=== PATIENT | female | born 1980 ===

== ENCOUNTER 2021-03-13 13:31 | Outpatient (CLI) | payer OTHER | END 2021-03-13 14:21 | disposition home or self-care (01) | LOC: TRG 13:31 → APU 13:32 → TRG 14:21 | DX: O26.893 Other specified pregnancy related conditions, third trimester (principal); O09.523 Supervision of elderly multigravida, third trimester; Z67.41 Type O blood, Rh negative; Z3A.30 30 weeks gestation of pregnancy | CPT/HCPCS: 86850; 86900; 86901; 96372; J2790 ==

== ENCOUNTER 2021-03-23 12:01 | Outpatient (CLI) | payer OTHER ==
[2021-03-23] MEDS ORDERED: TERBUTALINE 1 MG/1 ML INJ SUB-Q PRN (12:48)
[2021-03-23] MEDS ORDERED: MINERAL OIL 30 ML ORAL LIQD PO PRN (12:48)
[2021-03-23] MEDS ORDERED: ePHEDrine SULFATE 50 MG/1 ML INJ IV PRN (12:48)
[2021-03-23] MEDS ORDERED: CARBOPROST TROMETHAMINE 250 MCG/1 ML INJ IM PRN (12:48)
[2021-03-23] MEDS ORDERED: fentaNYL 100 MCG/2 ML INJ IV PRN (12:48)
[2021-03-23] MEDS ORDERED: miSOPROStol 200 MCG TAB PR PRN (12:48)
[2021-03-23] MEDS ORDERED: METHYLERGONOVINE MALEATE 0.2 MG/ML VIAL IM PRN (12:48)
[2021-03-23] MEDS ORDERED: BUTORPHANOL 2 MG/1 ML INJ IV PRN (12:48)
[2021-03-23] MEDS ORDERED: OXYTOCIN 10 UNIT/1 ML INJ IM PRN (12:48)
[2021-03-23] MEDS ORDERED: LIDOCAINE (2%) 20 MG/1 ML VIAL 20 ML MDV INFILTRATI ONE (12:48)
[2021-03-23] MEDS ORDERED: LOPERAMIDE 2 MG CAP PO PRN (12:48)
[2021-03-23] MEDS ORDERED: ACETAMINOPHEN 325 MG TAB PO PRN (12:48)
[2021-03-23] MEDS ORDERED: ONDANSETRON 4 MG/2 ML INJ IV PRN (12:48)
[2021-03-23] MEDS ORDERED: OXYTOCIN DRIP 30 UNITS/500 ML BAG IV SCH ×2 (13:00)
[2021-03-23] MEDS ORDERED: LACTATED RINGERS 1,000 ML IV SCH ×2 (13:00→16:00)
[2021-03-23] MEDS ORDERED: LACTATED RINGERS 500 ML IV ONE (13:10)
[2021-03-23] MEDS ORDERED: ONDANSETRON 4 MG/2 ML INJ IM ONE (13:13)
[2021-03-23] MEDS ORDERED: LACTATED RINGERS 1,000 ML IV ONE (13:17)
[2021-03-23] MEDS ORDERED: FAMOTIDINE 20 MG/2 ML INJ IV ONE (13:20)
[2021-03-23 14:02] LABS: Blood Urea Nitrogen 7 mg/dL (7-17); Calcium 8.1 mg/dL (8.4-10.2); Hemolysis Index 14
[2021-03-23 14:03] LABS: BUN/Creatinine Ratio 23
[2021-03-23] MEDS ORDERED: ACETAMINOPHEN 500 MG TAB PO ONE ×2 (14:15→19:00)
[2021-03-23 15:08] LABS: Bacteria,Urine 1+ /HPF (Negative); Mucus,Urine 3+ /HPF
[2021-03-23 17:38] LABS: Bilirubin,Urine NEG (Negative); Blood,Urine NEG (Negative); Color,Urine Amber (Yellow); Urobilinogen,Urine < 2.0 mg/dL (<2.0)
--- NOTE | 2021-03-23 18:19 | Ultrasound Report ---
ULTRASOUND ABDOMEN, LIMITED INDICATION / CLINICAL INFORMATION: gallbladder. Abdominal pain. COMPARISON: None available. FINDINGS: PANCREAS: Visualized portion shows no significant abnormality. LIVER: No significant abnormality. Normal hepatopedal blood flow in the main portal vein. GALLBLADDER: Multiple echogenic gallstones. No gallbladder wall thickening or edema. BILE DUCTS: No significant abnormality. Common bile duct measures 4.5 mm. FREE FLUID: None. ADDITIONAL FINDINGS: None. IMPRESSION: 1. Cholelithiasis. Signer Name: Shaun Cervantes MD Signed: 03/23/2021 6:15 PM Workstation Name: [id number]
[2021-03-23 19:49] VITALS: BP 119/66
== END 2021-03-23 20:13 | disposition home or self-care (01) ==
LOC: TRG 12:01 → APU 12:02 → LD 14:47 → TRG 20:13
PROVIDERS: ATTEND Obstetrics & Gynecology
DX: O09.893 Supervision of other high risk pregnancies, third trimester (principal); Z3A.32 32 weeks gestation of pregnancy
CPT/HCPCS: 36415; 59025; 76705; 80048; 81001; 87086; J2405; J3490; J7120

== ENCOUNTER 2021-05-15 12:54 | Outpatient (CLI) | payer OTHER ==
[2021-05-15 15:47] LABS: Basophils % (Auto) 0.3 % (0.0-1.8); Eosinophils # (Auto) 0.1 K/mm3 (0.0-0.4); Eosinophils % (Auto) 0.7 % (0.0-4.3); Hematocrit 31.5 % (30.3-42.9); Hemoglobin 10.9 gm/dl (10.1-14.3); Lymphocytes # (Auto) 1.2 K/mm3 (1.2-5.4); Lymphocytes % (Auto) 14.3 % (13.4-35.0); Mean Corpuscular HGB Conc 35 % (30-34); Mean Corpuscular Volume 87 fl (79-97); Monocytes # (Auto) 0.4 K/mm3 (0.0-0.8); Monocytes % (Auto) 5.1 % (0.0-7.3); Platelet Count 243 K/mm3 (140-440); Red Blood Count 3.63 M/mm3 (3.65-5.03); Red Cell Distribution Width 14.8 % (13.2-15.2)
[2021-05-15 15:50] LABS: Alanine Aminotransferase 13 units/L (7-56); Albumin 3.2 g/dL (3.9-5); Blood Urea Nitrogen 9 mg/dL (7-17); Calcium 8.6 mg/dL (8.4-10.2); Hemolysis Index 5; Uric Acid 3.8 mg/dL (3.5-7.6)
[2021-05-15 16:03] LABS: BUN/Creatinine Ratio 30
[2021-05-15 16:12] VITALS: BP 128/71
== END 2021-05-15 16:30 | disposition home or self-care (01) ==
LOC: TRG 12:54 → APU 12:55 → TRG 16:30
PROVIDERS: ATTEND Obstetrics & Gynecology
DX: O09.893 Supervision of other high risk pregnancies, third trimester (principal); Z3A.39 39 weeks gestation of pregnancy
CPT/HCPCS: 36415; 80053; 84550; 85025

== ENCOUNTER 2021-05-17 07:59 | Inpatient (IN) | payer OTHER ==
[2021-05-17] MEDS ORDERED: LACTATED RINGERS 1,000 ML ONE (09:49)
[2021-05-17] MEDS ORDERED: OXYTOCIN DRIP 30,000 MILLIUNITS/500 ML BAG IV ONE (09:50)
[2021-05-17 09:53] LABS: Hematocrit 34.1 % (30.3-42.9); Hemoglobin 11.8 gm/dl (10.1-14.3); Mean Corpuscular HGB Conc 35 % (30-34); Mean Corpuscular Volume 86 fl (79-97); Platelet Count 237 K/mm3 (140-440); Red Blood Count 3.97 M/mm3 (3.65-5.03); Red Cell Distribution Width 15.1 % (13.2-15.2)
[2021-05-17] MEDS ORDERED: TERBUTALINE 1 MG/1 ML INJ SUB-Q PRN (10:00)
[2021-05-17] MEDS ORDERED: ePHEDrine SULFATE 50 MG/1 ML INJ IV PRN (10:00)
[2021-05-17] MEDS ORDERED: ACETAMINOPHEN 325 MG TAB PO PRN ×2 (10:00→23:57)
[2021-05-17] MEDS ORDERED: OXYTOCIN 10 UNIT/1 ML INJ IM PRN (10:00)
[2021-05-17] MEDS ORDERED: CARBOPROST TROMETHAMINE 250 MCG/1 ML INJ IM PRN (10:00)
[2021-05-17] MEDS ORDERED: NALOXONE 0.4 MG/1 ML INJ IV PRN (10:00)
[2021-05-17] MEDS ORDERED: OXYTOCIN DRIP 30 UNITS/500 ML BAG IV SCH ×2 (10:00)
[2021-05-17] MEDS ORDERED: ONDANSETRON 4 MG/2 ML INJ IV PRN (10:00)
[2021-05-17] MEDS ORDERED: miSOPROStol 200 MCG TAB PR PRN (10:00)
[2021-05-17] MEDS ORDERED: BUTORPHANOL 2 MG/1 ML INJ IV PRN (10:00)
[2021-05-17] MEDS ORDERED: LIDOCAINE (2%) 20 MG/1 ML VIAL 20 ML MDV INFILTRATI SCH (10:00)
[2021-05-17] MEDS ORDERED: fentaNYL 100 MCG/2 ML INJ IV PRN ×2 (10:00→23:57)
[2021-05-17] MEDS ORDERED: LOPERAMIDE 2 MG CAP PO PRN (10:00)
[2021-05-17] MEDS ORDERED: MINERAL OIL 30 ML ORAL LIQD PO PRN (10:00)
[2021-05-17 10:14] LABS: Alanine Aminotransferase 13 units/L (7-56); Uric Acid 3.9 mg/dL (3.5-7.6)
[2021-05-17] MEDS: LACTATED RINGERS 1,000 ML IV SCH ×3 (10:31→20:17)
[2021-05-17] MEDS: BUTORPHANOL 2 MG/1 ML INJ IV PRN ×2 (10:37→18:22)
--- NOTE | 2021-05-17 10:41 | History and Physical Report ---
History of Present Illness Date of examination: 05/17/21 Date of admission: 05/17/2021 Chief complaint: My water broke at 0645 this morning History of present illness: Late entry to care at 15 3/7 Weeks at [facility], course complicated by a abnormal early 1 hour GTT followed by a normal 3 hour GTT; RH Negative: received Rhogam; AMA, and Maternal obesity. Past History Past Medical History: no pertinent history Past Surgical History: [employer]/uterine surgery (2018: right partial Oophrectomy and salpingectomy due to ectopic ) Family/Genetic History: none Social history: no significant social history - Obstetrical History Expected Date of Delivery: 05/19/21 Actual Gestation: 39 Week(s) 5 Day(s) : 2 Spontaneous Abortions: 1 Medications and Allergies Allergies Allergy/AdvReac Type Severity Reaction Status Date / Time No Known Allergies Allergy Verified 05/15/21 13:24 Active Meds: Active Medications Acetaminophen (Acetaminophen 325 Mg Tab) 650 mg PO Q4H PRN PRN Reason: Pain, Mild (1-3) Butorphanol Tartrate (Butorphanol 2 Mg/1 Ml Inj) 1 mg IV Q2H PRN PRN Reason: Pain, Moderate(4-6) LABOR PAIN Butorphanol Tartrate (Butorphanol 2 Mg/1 Ml Inj) 2 mg IV Q2H PRN PRN Reason: Pain , Severe (7-10) Last Admin: 05/17/21 10:37 Dose: 2 mg Carboprost Tromethamine (Carboprost Tromethamine 250 Mcg/1 Ml Inj) 250 mcg IM ONCE PRN PRN Reason: Uterine Bleeding Ephedrine Sulfate (Ephedrine Sulfate 50 Mg/1 Ml Inj) 10 mg IV Q2M PRN PRN Reason: Hypotension Fentanyl (Fentanyl 100 Mcg/2 Ml Inj) 100 mcg IV Q2H PRN PRN Reason: Pain,Severe (7-10) LABOR PAIN Oxytocin/Sodium Chloride (Pitocin/Ns 30 Unit/500ml) 30 units in 500 mls @ 4 mls/hr IV TITR SANDEEP; Protocol Last Admin: 05/17/21 10:35 Dose: 4 ml/hr, 4 mls/hr Lactated Ringer's (Lactated Ringers) 1,000 mls @ 125 mls/hr IV DIRECT SANDEEP Last Admin: 05/17/21 10:31 Dose: 125 mls/hr Oxytocin/Sodium Chloride (Pitocin/Ns 30 Unit/500ml) 30 units in 500 mls @ 40 mls/hr IV TITR SANDEEP; Protocol Lidocaine (Lidocaine (2%) 20 Mg/1 Ml Vial 20 Ml Mdv) 20 ml INFILTRATI ONCE@1000 SANDEEP Stop: 05/18/21 09:59 Loperamide HCl (Loperamide 2 Mg Cap) 2 mg PO ONCE PRN PRN Reason: give with Hemabate Mineral Oil (Mineral Oil 30 Ml Oral Liqd) 30 ml PO QHS PRN PRN Reason: Constipation Misoprostol (Misoprostol 200 Mcg Tab) 800 mcg DE ONCE PRN PRN Reason: Uterine Bleeding Naloxone HCl (Naloxone 0.4 Mg/1 Ml Inj) 0.1 mg IV Q2MIN PRN PRN Reason: Res Rate </= 8 or 02 SAT < 92% Ondansetron HCl (Ondansetron 4 Mg/2 Ml Inj) 4 mg IV Q8H PRN PRN Reason: Nausea And Vomiting Oxytocin (Oxytocin 10 Unit/1 Ml Inj) 10 unit IM ONCE PRN PRN Reason: Uterine Bleeding Terbutaline Sulfate (Terbutaline 1 Mg/1 Ml Inj) 0.25 mg SUB-Q ONCE PRN PRN Reason: Hyperstimulation/Hypertonicity Review of Systems All systems: negative - Vital Signs Vital signs: Vital Signs Pulse BP 76 116/78 05/17/21 08:30 05/17/21 08:30 Temp Pulse Resp BP Pulse Ox 98.3 F 67 16 112/70 99 05/17/21 08:48 05/17/21 10:34 05/17/21 08:48 05/17/21 10:10 05/17/21 10:34 - Physical Exam Breasts: Positive: normal Cardiovascular: Regular rate Lungs: Positive: Clear to auscultation, Normal air movement Abdomen: Positive: normal appearance, soft, normal bowel sounds Genitourinary (Female): Positive: normal external genitalia, normal perenium Uterus: Positive: enlarged Anus/Rectum: Positive: normal perianal skin Extremities: Positive: normal - Obstetrical FHR: category 1 Uterine Contraction Monitor Mode: External Cervical Dilatation: 1 (Leaking a large amount of clear fluid) Cervical Effacement Percentage: 60 station: -3 Uterine Contraction Pattern: Irregular Uterine Tone Measurement Phase: Resting Uterine Contraction Intensity: Mild Results Result Diagrams: 05/17/21 09:00 05/17/21 09:00 Abnormal lab results 05/17/21 05/17/21 Range/Units 09:00 09:00 MCHC 35 H (30-34) % Creatinine 0.3 L (0.6-1.2) mg/dL Lactate Dehydrogenase 306 H (91-180) units/L All other labs normal. Assessment and Plan A: IUP @ 39 5/7 Weeks Category I Tracing PROM AMA Maternal Obesity GBS Negative P: Admit to L&D Per Routine Orders Cook's Cervical Ripening Balloon Placed Low-Dose Pitocin Induction
--- NOTE | 2021-05-17 12:10 | Anesthesia Consultation ---
Anesthesia Consult and Med Hx Date of service: 05/17/21 - Airway Anesthetic Teeth Evaluation: Good ROM Head & Neck: Adequate Mental/Hyoid Distance: Adequate Mallampati Class: Class II Intubation Access Assessment: Probably Good - Pulmonary Exam CTA: Yes - Cardiac Exam Cardiac Exam: RRR - Pre-Operative Health Status ASA Pre-Surgery Classification: ASA3 Proposed Anesthetic Plan: Epidural - Pulmonary Hx Asthma: No COPD: No Hx Pneumonia: No - Cardiovascular System Hx Hypertension: No - Central Nervous System Hx Seizures: No Hx Psychiatric Problems: No - Endocrine Hx Renal Disease: No Hx End Stage Renal Disease: No Hx Hypothyroidism: No Hx Hyperthyroidism: No - Hematic Hx Anemia: Yes Hx Sickle Cell Disease: No - Other Systems Hx Alcohol Use: No Hx Obesity: Yes
--- NOTE | 2021-05-17 12:42 | Progress Note ---
Assessment and Plan A: IUP @ 39 5/7 Weeks Category I Tracing PROM AMA Maternal Obesity GBS Negative P: Cook's Balloon fell out AROM of hindbag Continue Pitocin Augmentation Subjective - Subjective Date of service: 05/17/21 Interval history: Late entry to care at 15 3/7 Weeks at [facility], course complicated by a abnormal early 1 hour GTT followed by a normal 3 hour GTT; RH Negative: received Rhogam; AMA, and Maternal obesity. Patient reports: movement normal, contractions Objective - Vital Signs Vital Signs: Vital Signs - 12hr 05/17/21 05/17/21 05/17/21 08:30 08:32 08:37 Temperature Pulse Rate 76 81 89 Respiratory Rate Blood Pressure 116/78 O2 Sat by Pulse 97 97 Oximetry 05/17/21 05/17/21 05/17/21 08:42 08:47 08:48 Temperature 98.3 F Pulse Rate 78 73 Respiratory 16 Rate Blood Pressure O2 Sat by Pulse 99 98 Oximetry 05/17/21 05/17/21 05/17/21 08:52 08:56 09:02 Temperature Pulse Rate 78 73 79 Respiratory Rate Blood Pressure O2 Sat by Pulse 98 98 99 Oximetry 05/17/21 05/17/21 05/17/21 09:06 09:12 09:16 Temperature Pulse Rate 68 74 75 Respiratory Rate Blood Pressure O2 Sat by Pulse 98 98 98 Oximetry 05/17/21 05/17/21 05/17/21 09:22 09:26 09:31 Temperature Pulse Rate 72 64 66 Respiratory Rate Blood Pressure O2 Sat by Pulse 98 99 99 Oximetry 05/17/21 05/17/21 05/17/21 09:37 09:39 09:41 Temperature Pulse Rate 65 63 77 Respiratory Rate Blood Pressure 114/73 O2 Sat by Pulse 97 99 Oximetry 05/17/21 05/17/21 05/17/21 09:45 09:46 09:51 Temperature Pulse Rate 69 68 63 Respiratory Rate Blood Pressure O2 Sat by Pulse 87 98 99 Oximetry 05/17/21 05/17/21 05/17/21 09:56 10:01 10:06 Temperature Pulse Rate 61 61 64 Respiratory Rate Blood Pressure O2 Sat by Pulse 98 99 100 Oximetry 05/17/21 05/17/21 05/17/21 10:10 10:17 10:34 Temperature Pulse Rate 75 77 67 Respiratory Rate Blood Pressure 112/70 O2 Sat by Pulse 98 99 Oximetry 05/17/21 05/17/21 05/17/21 10:39 10:40 10:44 Temperature Pulse Rate 69 65 67 Respiratory Rate Blood Pressure 120/69 O2 Sat by Pulse 98 96 Oximetry 05/17/21 05/17/21 05/17/21 10:46 10:49 11:10 Temperature Pulse Rate 68 67 63 Respiratory Rate Blood Pressure 132/75 O2 Sat by Pulse 94 97 Oximetry 05/17/21 05/17/21 11:40 12:09 Temperature Pulse Rate 68 69 Respiratory Rate Blood Pressure 139/89 124/77 O2 Sat by Pulse Oximetry - Exam Breasts: normal Cardiovascular: Regular rate Lungs: Normal air movement Abdomen: Present: normal appearance, soft Uterus: Present: normal, firm, fundal height above umbilicus FHR: category 1 Uterine Contraction Monitor Mode: External Cervical Dilatation: 4 (AROM of hindbag: Copious amount of clear fluid) Cervical Effacement Percentage: 70 station: -3 Uterine Contraction Pattern: Regular Uterine Tone Measurement Phase: Resting Uterine Contraction Intensity: Moderate Extremities: normal - Labs Labs: Abnormal Labs 05/17/21 05/17/21 09:00 09:00 MCHC 35 H Creatinine 0.3 L Lactate Dehydrogenase 306 H Laboratory Results - last 24 hr 05/17/21 05/17/21 05/17/21 09:00 09:00 09:00 WBC 6.5 RBC 3.97 Hgb 11.8 Hct 34.1 MCV 86 MCH 30 MCHC 35 H RDW 15.1 Plt Count 237 Creatinine 0.3 L Estimated GFR > 60 Uric Acid 3.9 AST 19 ALT 13 Lactate Dehydrogenase 306 H SARS-CoV-2 (PCR) Blood Type O NEGATIVE Antibody Screen Negative 05/17/21 10:45 WBC RBC Hgb Hct MCV MCH MCHC RDW Plt Count Creatinine Estimated GFR Uric Acid AST ALT Lactate Dehydrogenase SARS-CoV-2 (PCR) Negative Blood Type Antibody Screen
[2021-05-17] MEDS ORDERED: NALOXONE 2 MG/2 ML INJ IV PRN (13:00)
[2021-05-17 16:16] LABS: Mucus,Urine 3+ /HPF
[2021-05-17 16:29] LABS: RBC,Urine > 182.0 /HPF (0.0-6.0)
[2021-05-17 17:54] LABS: Color,Urine Yellow (Yellow)
[2021-05-17 17:55] LABS: Bilirubin,Urine Negative (Negative); Protein,Urine <15 mg/dL mg/dL (Negative)
[2021-05-17 17:59] LABS: Blood,Urine 3+ (Negative)
--- NOTE | 2021-05-17 20:59 | Progress Note ---
Labor Epidural - Labor Epidural Start Time: 20:31 Stop Time: 20:50 Performed by:: XAVIER RUTHERFORD Procedure: Patient is requesting epidural for labor pain. H&P, and labs reviewed. Procedure explained, questions answered, consent obtained. Patient in sitting position with blood pressure cuff and pulse ox on and working. Timeout performed immediately before start of procedure. Sterile Chloraprep prep/drape. 3 mL 1% lidocaine skin wheal at L[3]-L[4]. 17-gauge tuohy epidural needle advanced to [id number] with saline at 10 cm x3 attempts, difficulty with positioning patient and holding still. Epidural dexmedetomidine [30] mcg administered. Epidural catheter advanced to 15 cm, negative aspiration for blood and csf, negative test dose 3 ml 1.5% lidocaine with epinephrine. Sterile sponge and tegaderm applied, followed by tape reinforcement. Patient tolerated procedure well.
[2021-05-17] MEDS: ePHEDrine SULFATE 50 MG/1 ML INJ IV PRN (21:11)
[2021-05-17] MEDS: fentaNYL-BUPIV 2 MCG/ML-0.125% 200 MCG/100 ML BAG EPIDURAL SCH (21:21)
[2021-05-17] MEDS ORDERED: NalbUPHINE 10 MG/1 ML INJ IV PRN (23:57)
[2021-05-18] MEDS: ePHEDrine SULFATE 50 MG/1 ML INJ IV PRN (01:41)
[2021-05-18] MEDS: fentaNYL-BUPIV 2 MCG/ML-0.125% 200 MCG/100 ML BAG EPIDURAL SCH (05:29)
--- NOTE | 2021-05-18 08:02 | Event Note ---
Date: 05/18/21 CC: IOL for Term PROM HPI: 40 y/o at 39-6/7 weeks in L&D for IOL secondary to Term PROM. She progressed from 1 cm to 6 cm after Cook's catheter and Pitocin. Of note, the patient reports (L) calf pain. O: EFM= category 1 TOCO= q 5-7 min SVE= 6 cm. IUPC and FSE placed. EXT= (L) lower extremity swelling, discoloration, and pain. RAD: OB US Limited= ordered (L) lower extremity venous dopplers= ordered IMP: 1.) 39 weeks 2.) Term PROM 3.) (L) calf pain 4.) Obesity 5.) IOL PLAN: 1.) Continue pitocin per protocol. 2.) Await results of L.E. dopplers to evaluate for DVT. 3.) Await results of OB US for EFW also.
--- NOTE | 2021-05-18 09:17 | Ultrasound Report ---
ULTRASOUND OBSTETRIC COMPLETE INDICATION / CLINICAL INFORMATION: Obesity. well-being. Clinical Gestational Age (GA) in weeks.days: 39.6 TECHNIQUE: Transabdominal. COMPARISON: None available. FINDINGS: NUMBER: Single PRESENTATION: cephalic PLACENTA: Fundal, left lateral, grade 2 and free of the os. MATERNAL ADNEXA: No significant abnormality. AMNIOTIC FLUID VOLUME: decreased AMNIOTIC FLUID INDEX (LAUREN) in cm (if measured): 5.9 ANATOMY: anatomical survey was not performed. MEASUREMENTS: - Biparietal Diameter = 8.9 cm = 36.0 weeks.days - Head Circumference = 31.1 cm = 34.6 weeks.days - Abdominal Circumference = 34.0 cm = 37.6 weeks.days - Femur Length = 7.1 cm = 36.4 weeks.days - Estimated Weight (in grams, if calculated): 3087 - Heart Rate (beats per minute): 138 ADDITIONAL FINDINGS: None. PERCENTILE ESTIMATED WEIGHT (if calculated): 13 AVERAGE ULTRASOUND AGE (AUA) in weeks.days = 36.2 IMPRESSION: 1. Single intrauterine with AUA of 36.2 weeks.days Signer Name: Jos Rollins Jr, MD Signed: 05/18/2021 9:12 AM Workstation Name: [id number]
[2021-05-18] MEDS ORDERED: diphenhydrAMINE 50 MG/ML VIAL IV ONE (09:27)
--- NOTE | 2021-05-18 09:43 | Vascular Lab Report ---
DUPLEX DOPPLER LOWER EXTREMITY VEINS, BILATERAL INDICATION: Left medial calf pain, discoloration, and swelling. TECHNIQUE: Duplex doppler imaging was performed through the veins of both lower extremities using venous jimbo johnathan and other maneuvers. COMPARISON: None available. FINDINGS: Right Common femoral vein: Negative. Right Superficial femoral vein: Negative. Right Popliteal vein: Negative. Right Calf veins: Negative. Left Common femoral vein: Negative. Left Superficial femoral vein: Negative. Left Popliteal vein: Negative. Left Calf veins: Negative. Additional findings: None. IMPRESSION: Negative for DVT. Signer Name: Robi Alamo MD Signed: 05/18/2021 9:39 AM Workstation Name: [id number]
--- NOTE | 2021-05-18 10:57 | Progress Note ---
Subjective - Subjective Date of service: 05/18/21 Interval history: Late decelerations noted +ve moderate variability no cervical record changer 12 hours SROM>16 hours +ve caput plan for operative delivery informed consent obtained Henrique Strange MD Patient reports: movement normal, contractions Objective - Vital Signs Vital Signs: Vital Signs - 12hr 05/17/21 05/17/21 05/17/21 22:59 23:01 23:04 Temperature Pulse Rate 61 71 59 L Respiratory Rate Blood Pressure Blood Pressure [Right] O2 Sat by Pulse 98 90 97 Oximetry O2 Sat by Pulse Oximetry [ Bilateral] 05/17/21 05/17/21 05/17/21 23:07 23:09 23:14 Temperature Pulse Rate 64 58 L 59 L Respiratory Rate Blood Pressure 103/59 Blood Pressure [Right] O2 Sat by Pulse 98 96 Oximetry O2 Sat by Pulse Oximetry [ Bilateral] 05/17/21 05/17/21 05/17/21 23:19 23:22 23:24 Temperature Pulse Rate 56 L 57 L 59 L Respiratory Rate Blood Pressure 92/53 Blood Pressure [Right] O2 Sat by Pulse 98 97 Oximetry O2 Sat by Pulse Oximetry [ Bilateral] 05/17/21 05/17/21 05/17/21 23:29 23:36 23:37 Temperature Pulse Rate 60 57 L Respiratory Rate Blood Pressure 103/59 Blood Pressure [Right] O2 Sat by Pulse 93 97 Oximetry O2 Sat by Pulse Oximetry [ Bilateral] 05/17/21 05/17/21 05/17/21 23:41 23:44 23:46 Temperature Pulse Rate 59 L 79 58 L Respiratory Rate Blood Pressure Blood Pressure [Right] O2 Sat by Pulse 97 92 98 Oximetry O2 Sat by Pulse Oximetry [ Bilateral] 05/17/21 05/17/21 05/17/21 23:51 23:54 23:56 Temperature Pulse Rate 58 L 54 L 56 L Respiratory Rate Blood Pressure 92/51 Blood Pressure [Right] O2 Sat by Pulse 98 98 Oximetry O2 Sat by Pulse Oximetry [ Bilateral] 05/18/21 05/18/21 05/18/21 00:01 00:08 00:09 Temperature Pulse Rate 56 L 57 L 55 L Respiratory Rate Blood Pressure 100/50 Blood Pressure [Right] O2 Sat by Pulse 98 98 Oximetry O2 Sat by Pulse Oximetry [ Bilateral] 05/18/21 05/18/21 05/18/21 00:14 00:18 00:19 Temperature Pulse Rate 56 L 55 L 59 L Respiratory Rate Blood Pressure Blood Pressure [Right] O2 Sat by Pulse 98 92 90 Oximetry O2 Sat by Pulse Oximetry [ Bilateral] 05/18/21 05/18/21 05/18/21 00:22 00:37 00:39 Temperature Pulse Rate 62 66 Respiratory Rate Blood Pressure 92/55 97/52 Blood Pressure [Right] O2 Sat by Pulse 87 Oximetry O2 Sat by Pulse Oximetry [ Bilateral] 05/18/21 05/18/21 05/18/21 00:51 00:52 01:08 Temperature Pulse Rate 67 61 Respiratory Rate Blood Pressure 93/54 100/55 Blood Pressure [Right] O2 Sat by Pulse 88 88 Oximetry O2 Sat by Pulse Oximetry [ Bilateral] 05/18/21 05/18/21 05/18/21 01:22 01:38 01:40 Temperature Pulse Rate 60 57 L 57 L Respiratory Rate Blood Pressure 106/61 89/51 83/49 Blood Pressure [Right] O2 Sat by Pulse Oximetry O2 Sat by Pulse Oximetry [ Bilateral] 05/18/21 05/18/21 05/18/21 01:41 01:46 01:49 Temperature Pulse Rate 56 L 59 L 64 Respiratory Rate Blood Pressure 117/63 113/59 Blood Pressure [Right] O2 Sat by Pulse 98 Oximetry O2 Sat by Pulse Oximetry [ Bilateral] 05/18/21 05/18/21 05/18/21 01:51 01:52 01:56 Temperature Pulse Rate 61 60 61 Respiratory Rate Blood Pressure 112/63 Blood Pressure [Right] O2 Sat by Pulse 99 99 Oximetry O2 Sat by Pulse Oximetry [ Bilateral] 05/18/21 05/18/21 05/18/21 02:01 02:06 02:08 Temperature Pulse Rate 66 67 68 Respiratory Rate Blood Pressure 103/51 Blood Pressure [Right] O2 Sat by Pulse 99 99 Oximetry O2 Sat by Pulse Oximetry [ Bilateral] 05/18/21 05/18/21 05/18/21 02:11 02:16 02:21 Temperature Pulse Rate 67 62 61 Respiratory Rate Blood Pressure Blood Pressure [Right] O2 Sat by Pulse 99 99 98 Oximetry O2 Sat by Pulse Oximetry [ Bilateral] 05/18/21 05/18/21 05/18/21 02:23 02:26 02:31 Temperature Pulse Rate 64 62 67 Respiratory Rate Blood Pressure 102/53 Blood Pressure [Right] O2 Sat by Pulse 99 99 Oximetry O2 Sat by Pulse Oximetry [ Bilateral] 05/18/21 05/18/21 05/18/21 02:36 02:39 02:40 Temperature Pulse Rate 68 44 L 81 Respiratory Rate Blood Pressure 124/58 Blood Pressure [Right] O2 Sat by Pulse 99 80 L Oximetry O2 Sat by Pulse Oximetry [ Bilateral] 05/18/21 05/18/21 05/18/21 02:41 02:46 02:51 Temperature Pulse Rate 96 H 69 70 Respiratory Rate Blood Pressure Blood Pressure [Right] O2 Sat by Pulse 91 99 99 Oximetry O2 Sat by Pulse Oximetry [ Bilateral] 05/18/21 05/18/21 05/18/21 02:53 03:07 03:08 Temperature Pulse Rate 70 73 70 Respiratory Rate Blood Pressure 114/68 122/69 Blood Pressure [Right] O2 Sat by Pulse 98 Oximetry O2 Sat by Pulse Oximetry [ Bilateral] 05/18/21 05/18/21 05/18/21 03:12 03:17 03:22 Temperature Pulse Rate 70 70 67 Respiratory Rate Blood Pressure Blood Pressure [Right] O2 Sat by Pulse 99 99 99 Oximetry O2 Sat by Pulse Oximetry [ Bilateral] 05/18/21 05/18/21 05/18/21 03:23 03:27 03:32 Temperature Pulse Rate 69 70 69 Respiratory Rate Blood Pressure 119/66 Blood Pressure [Right] O2 Sat by Pulse 98 98 Oximetry O2 Sat by Pulse Oximetry [ Bilateral] 05/18/21 05/18/21 05/18/21 03:37 03:38 03:45 Temperature Pulse Rate 69 69 Respiratory Rate Blood Pressure 109/55 Blood Pressure [Right] O2 Sat by Pulse 98 87 Oximetry O2 Sat by Pulse Oximetry [ Bilateral] 05/18/21 05/18/21 05/18/21 03:46 03:51 03:53 Temperature Pulse Rate 70 70 68 Respiratory Rate Blood Pressure 106/55 Blood Pressure [Right] O2 Sat by Pulse 98 98 Oximetry O2 Sat by Pulse Oximetry [ Bilateral] 05/18/21 05/18/21 05/18/21 03:56 04:01 04:06 Temperature Pulse Rate 78 79 72 Respiratory Rate Blood Pressure Blood Pressure [Right] O2 Sat by Pulse 99 98 98 Oximetry O2 Sat by Pulse Oximetry [ Bilateral] 05/18/21 05/18/21 05/18/21 04:07 04:11 04:16 Temperature 97.4 F L Pulse Rate 67 69 66 Respiratory 17 Rate Blood Pressure 109/59 Blood Pressure [Right] O2 Sat by Pulse 98 98 Oximetry O2 Sat by Pulse Oximetry [ Bilateral] 05/18/21 05/18/21 05/18/21 04:21 04:26 04:28 Temperature Pulse Rate 71 71 75 Respiratory Rate Blood Pressure Blood Pressure [Right] O2 Sat by Pulse 99 98 91 Oximetry O2 Sat by Pulse Oximetry [ Bilateral] 05/18/21 05/18/21 05/18/21 04:31 04:36 04:38 Temperature Pulse Rate 71 75 72 Respiratory Rate Blood Pressure 112/65 Blood Pressure [Right] O2 Sat by Pulse 99 99 Oximetry O2 Sat by Pulse Oximetry [ Bilateral] 05/18/21 05/18/21 05/18/21 04:41 04:46 04:51 Temperature Pulse Rate 69 72 71 Respiratory Rate Blood Pressure Blood Pressure [Right] O2 Sat by Pulse 98 99 98 Oximetry O2 Sat by Pulse Oximetry [ Bilateral] 05/18/21 05/18/21 05/18/21 04:56 05:01 05:06 Temperature Pulse Rate 72 71 75 Respiratory Rate Blood Pressure Blood Pressure [Right] O2 Sat by Pulse 99 98 98 Oximetry O2 Sat by Pulse Oximetry [ Bilateral] 05/18/21 05/18/21 05/18/21 05:09 05:11 05:16 Temperature Pulse Rate 71 76 77 Respiratory Rate Blood Pressure 120/72 Blood Pressure [Right] O2 Sat by Pulse 98 98 Oximetry O2 Sat by Pulse Oximetry [ Bilateral] 05/18/21 05/18/21 05/18/21 05:21 05:26 05:31 Temperature Pulse Rate 72 74 77 Respiratory Rate Blood Pressure Blood Pressure [Right] O2 Sat by Pulse 98 99 99 Oximetry O2 Sat by Pulse Oximetry [ Bilateral] 05/18/21 05/18/21 05/18/21 05:36 05:37 05:38 Temperature Pulse Rate 72 71 65 Respiratory Rate Blood Pressure 108/53 Blood Pressure [Right] O2 Sat by Pulse 99 92 Oximetry O2 Sat by Pulse Oximetry [ Bilateral] 05/18/21 05/18/21 05/18/21 05:41 05:46 05:51 Temperature Pulse Rate 69 63 66 Respiratory Rate Blood Pressure Blood Pressure [Right] O2 Sat by Pulse 97 98 98 Oximetry O2 Sat by Pulse Oximetry [ Bilateral] 05/18/21 05/18/21 05/18/21 05:56 06:01 06:06 Temperature Pulse Rate 64 67 66 Respiratory Rate Blood Pressure Blood Pressure [Right] O2 Sat by Pulse 97 98 97 Oximetry O2 Sat by Pulse Oximetry [ Bilateral] 05/18/21 05/18/21 05/18/21 06:08 06:11 06:16 Temperature Pulse Rate 65 69 64 Respiratory Rate Blood Pressure 94/50 Blood Pressure [Right] O2 Sat by Pulse 97 96 Oximetry O2 Sat by Pulse Oximetry [ Bilateral] 05/18/21 05/18/21 05/18/21 06:21 06:26 06:31 Temperature Pulse Rate 71 63 66 Respiratory Rate Blood Pressure Blood Pressure [Right] O2 Sat by Pulse 98 98 99 Oximetry O2 Sat by Pulse Oximetry [ Bilateral] 05/18/21 05/18/21 05/18/21 06:36 06:38 06:41 Temperature Pulse Rate 69 64 67 Respiratory Rate Blood Pressure 94/52 Blood Pressure [Right] O2 Sat by Pulse 99 99 Oximetry O2 Sat by Pulse Oximetry [ Bilateral] 05/18/21 05/18/21 05/18/21 06:46 06:51 06:56 Temperature Pulse Rate 65 68 68 Respiratory Rate Blood Pressure Blood Pressure [Right] O2 Sat by Pulse 99 99 99 Oximetry O2 Sat by Pulse Oximetry [ Bilateral] 05/18/21 05/18/21 05/18/21 06:59 07:00 07:01 Temperature 97.3 F L Pulse Rate 64 69 66 Respiratory 16 Rate Blood Pressure 107/54 Blood Pressure 107/54 [Right] O2 Sat by Pulse 99 98 Oximetry O2 Sat by Pulse 98 Oximetry [ Bilateral] 05/18/21 05/18/21 05/18/21 07:06 07:11 07:13 Temperature Pulse Rate 69 70 65 Respiratory Rate Blood Pressure 119/63 Blood Pressure [Right] O2 Sat by Pulse 98 99 Oximetry O2 Sat by Pulse Oximetry [ Bilateral] 05/18/21 05/18/21 05/18/21 07:16 07:21 07:23 Temperature Pulse Rate 69 89 Respiratory Rate Blood Pressure Blood Pressure [Right] O2 Sat by Pulse 100 99 87 Oximetry O2 Sat by Pulse Oximetry [ Bilateral] 05/18/21 05/18/21 05/18/21 07:26 07:28 07:31 Temperature Pulse Rate 75 75 64 Respiratory Rate Blood Pressure 97/54 Blood Pressure [Right] O2 Sat by Pulse 99 100 Oximetry O2 Sat by Pulse Oximetry [ Bilateral] 05/18/21 05/18/21 05/18/21 07:43 07:54 07:58 Temperature Pulse Rate 74 78 89 Respiratory Rate Blood Pressure 110/66 114/70 Blood Pressure [Right] O2 Sat by Pulse 100 Oximetry O2 Sat by Pulse Oximetry [ Bilateral] 05/18/21 05/18/21 05/18/21 07:59 08:04 08:09 Temperature Pulse Rate 84 89 83 Respiratory Rate Blood Pressure Blood Pressure [Right] O2 Sat by Pulse 100 100 100 Oximetry O2 Sat by Pulse Oximetry [ Bilateral] 05/18/21 05/18/21 05/18/21 08:13 08:14 08:15 Temperature Pulse Rate 75 72 75 Respiratory Rate Blood Pressure 116/66 Blood Pressure [Right] O2 Sat by Pulse 99 82 L Oximetry O2 Sat by Pulse Oximetry [ Bilateral] 05/18/21 05/18/21 05/18/21 08:19 08:24 08:28 Temperature Pulse Rate 99 H 82 82 Respiratory Rate Blood Pressure 110/59 Blood Pressure [Right] O2 Sat by Pulse 98 100 Oximetry O2 Sat by Pulse Oximetry [ Bilateral] 05/18/21 05/18/21 05/18/21 08:29 08:31 08:34 Temperature Pulse Rate 82 104 H 91 H Respiratory Rate Blood Pressure Blood Pressure [Right] O2 Sat by Pulse 100 86 100 Oximetry O2 Sat by Pulse Oximetry [ Bilateral] 05/18/21 05/18/21 05/18/21 08:40 08:43 08:50 Temperature Pulse Rate 82 88 31 L Respiratory Rate Blood Pressure 111/57 Blood Pressure [Right] O2 Sat by Pulse 91 84 Oximetry O2 Sat by Pulse Oximetry [ Bilateral] 05/18/21 05/18/21 05/18/21 08:51 08:56 08:58 Temperature Pulse Rate 77 81 78 Respiratory Rate Blood Pressure 129/59 Blood Pressure [Right] O2 Sat by Pulse 100 99 Oximetry O2 Sat by Pulse Oximetry [ Bilateral] 05/18/21 05/18/21 05/18/21 09:01 09:06 09:11 Temperature Pulse Rate 79 81 85 Respiratory Rate Blood Pressure Blood Pressure [Right] O2 Sat by Pulse 100 99 100 Oximetry O2 Sat by Pulse Oximetry [ Bilateral] 05/18/21 05/18/21 05/18/21 09:14 09:16 09:20 Temperature Pulse Rate 78 78 82 Respiratory Rate Blood Pressure 120/63 Blood Pressure [Right] O2 Sat by Pulse 99 92 Oximetry O2 Sat by Pulse Oximetry [ Bilateral] 05/18/21 05/18/21 05/18/21 09:22 09:27 09:28 Temperature 98.9 F Pulse Rate 85 83 85 Respiratory Rate Blood Pressure 115/63 Blood Pressure [Right] O2 Sat by Pulse 99 99 Oximetry O2 Sat by Pulse Oximetry [ Bilateral] 05/18/21 05/18/21 05/18/21 09:32 09:37 09:42 Temperature Pulse Rate 87 83 89 Respiratory Rate Blood Pressure Blood Pressure [Right] O2 Sat by Pulse 99 99 99 Oximetry O2 Sat by Pulse Oximetry [ Bilateral] 05/18/21 05/18/21 05/18/21 09:43 09:47 09:50 Temperature Pulse Rate 87 90 111 H Respiratory Rate Blood Pressure 123/66 Blood Pressure [Right] O2 Sat by Pulse 99 94 Oximetry O2 Sat by Pulse Oximetry [ Bilateral] 05/18/21 05/18/21 05/18/21 09:52 09:57 09:58 Temperature Pulse Rate 94 H 89 86 Respiratory Rate Blood Pressure 120/67 Blood Pressure [Right] O2 Sat by Pulse 98 98 Oximetry O2 Sat by Pulse Oximetry [ Bilateral] 05/18/21 05/18/21 05/18/21 10:03 10:06 10:08 Temperature Pulse Rate 79 70 72 Respiratory Rate Blood Pressure Blood Pressure [Right] O2 Sat by Pulse 99 93 88 Oximetry O2 Sat by Pulse Oximetry [ Bilateral] 05/18/21 05/18/21 05/18/21 10:14 10:17 10:27 Temperature Pulse Rate 77 Respiratory Rate Blood Pressure 104/50 Blood Pressure [Right] O2 Sat by Pulse 87 96 Oximetry O2 Sat by Pulse Oximetry [ Bilateral] 05/18/21 05/18/21 05/18/21 10:28 10:32 10:37 Temperature Pulse Rate 78 94 H 82 Respiratory Rate Blood Pressure 107/56 Blood Pressure [Right] O2 Sat by Pulse 98 99 Oximetry O2 Sat by Pulse Oximetry [ Bilateral] 05/18/21 05/18/21 05/18/21 10:41 10:42 10:43 Temperature Pulse Rate 67 86 82 Respiratory Rate Blood Pressure 128/68 Blood Pressure [Right] O2 Sat by Pulse 87 98 Oximetry O2 Sat by Pulse Oximetry [ Bilateral] 05/18/21 05/18/21 10:47 10:52 Temperature Pulse Rate 83 82 Respiratory Rate Blood Pressure Blood Pressure [Right] O2 Sat by Pulse 99 99 Oximetry O2 Sat by Pulse Oximetry [ Bilateral] - Labs Labs: Abnormal Labs 05/17/21 05/17/21 05/17/21 09:00 09:00 15:50 MCHC 35 H Creatinine 0.3 L Lactate Dehydrogenase 306 H Urine WBC (Auto) 11.0 H U Epithel Cells (Auto) 15.0 H Laboratory Results - last 24 hr 05/17/21 05/17/21 05/17/21 09:00 09:00 10:45 Urine Color Urine Turbidity Urine pH Ur Specific [place] Urine Protein Urine Glucose (UA) Urine Ketones Urine Blood Urine Nitrite Ur Reducing Substances Urine Bilirubin Urine Ictotest Urine Urobilinogen Ur Leukocyte Esterase Urine WBC (Auto) Urine RBC (Auto) U Epithel Cells (Auto) Urine Mucus Syphilis IgG/IgM Ab Nonreactive SARS-CoV-2 (PCR) Negative Antibody Screen Negative 05/17/21 15:50 Urine Color Yellow Urine Turbidity Clear Urine pH 5.0 Ur Specific [place] 1.005 Urine Protein <15 mg/dl Urine Glucose (UA) Negative Urine Ketones Negative Urine Blood 3+ Urine Nitrite Negative Ur Reducing Substances Not Reportable Urine Bilirubin Negative Urine Ictotest Not Reportable Urine Urobilinogen 0.0 Ur Leukocyte Esterase 1+ Urine WBC (Auto) 11.0 H Urine RBC (Auto) > 182.0 U Epithel Cells (Auto) 15.0 H Urine Mucus 3+ Syphilis IgG/IgM Ab SARS-CoV-2 (PCR) Antibody Screen
[2021-05-18] MEDS ORDERED: FAMOTIDINE 20 MG/2 ML INJ IV ONE (10:59)
[2021-05-18] MEDS ORDERED: METOCLOPRAMIDE 10 MG/2 ML INJ IV ONE (10:59)
[2021-05-18] MEDS ORDERED: BICITRA ORAL LIQD 30ML PO ONE (10:59)
[2021-05-18] MEDS ORDERED: LACTATED RINGERS 1,000 ML IV SCH (11:00)
[2021-05-18] MEDS ORDERED: ceFAZolin/Water 2 GM/20 ML 2 GM/20 ML SYRINGE IV NR (11:00)
--- NOTE | 2021-05-18 11:50 | Procedure Note ---
OB Delivery Note - Delivery Date of Delivery: 05/18/21 Surgeon: MARILU BOUCHER - Section Preop diagnosis: arrest of dilation, nonreassuring FHR tracing Postop diagnosis: same section procedure: primary low transverse Disposition: PACU Complications: none Narrative: Preop diagnosis: IUP at 40.0 weeks, nonreassuring heart tracing with arrest of dilatation Postop diagnosis: Same, delivered Procedure: Primary low transverse section via Pfannenstiel incision Surgeon: Dr. Marilu Boucher Anesthesia spinal Complications none EBL 617 ml IV fluids 1500 mL Urine output 25mL, clear Drains Go to gravity Findings: Viable female with weight 3960gms and 5/8 Procedure: Patient was consented in OB triage, taken to the operating room where she received excellent spinal anesthesia. She was then placed in the dorsal supine position with a leftward tilt. The abdomen was prepped and draped in a sterile fashion, and a timeout was verified. Adequate anesthesia was confirmed prior to the skin incision. A Pfannenstiel skin incision was made with a scalpel taken down to the underlying structures and the fascia was incised in the midline. The incision was extended laterally with curved Segundo scissors, the superior and inferior aspects of the fascial incisions were grasped with Hui clamps and the rectus muscles dissected sharply. The abdomen was entered bluntly in the midline carried down inferiorly with good visualization of the bladder. The vesicouterine peritoneum was tented with [place] forceps and incised in the midline with Metzenbaum scissors and the vesicouterine peritoneum taken down sharply. The uterine incision was then made sharply with a scalpel. The inferior and superior aspect of the uterine incisions were extended bluntly, the baby's head was delivered atraumatically. The remainder of the delivery was uncomplicated, no nuchal cord. The cord was clamped and cut and baby handed to waiting NICU team. An intact placenta with three-vessel cord delivered manually. The uterus was then cleared of all clots and debris and the uterus exteriorized. The uterine incision was closed in 2 layers of 0 vicryl with excellent hemostasis. The abdomen was then irrigated with warm normal saline and the uterus placed back into the abdomen atrauma tically. A second look at the uterine incision assured hemostasis. The peritoneum was closed with 3-0 Vicryl, the rectus muscles approximated with 3-0 Vicryl, and the fascia closed with 0 Vicryl in the usual fashion. The subcuticular structures were closed with interrupted sutures of 3-0 Vicryl and the skin closed with 4-0 Monocryl. A pressure dressing was applied. All sponge needle and instrument counts were correct x2. There were no complications. Mom and baby stable to PACU. EBL 617 mL Henrique Boucher MD
[2021-05-18] MEDS ORDERED: BUPIVACAINE/PF (0.5%) 5 MG/1 ML 30 ML VIAL INFILTRATI ONE (11:56)
[2021-05-18] MEDS ORDERED: SODIUM BICARB 8.4% 50 MEQ/50 ML VIAL IV ONE (11:56)
[2021-05-18] MEDS ORDERED: LIDOCAINE 2%/EPINEPHRINE 1:200,000 VIAL (20 ML) INFILTRATI ONE (11:56)
[2021-05-18] MEDS ORDERED: KETOROLAC 30 MG/1 ML INJ ONE (11:56)
[2021-05-18] MEDS ORDERED: ONDANSETRON 4 MG/2 ML INJ ONE (11:56)
[2021-05-18] MEDS ORDERED: dexAMETHasone 20 MG/5 ML VIAL ONE (11:56)
[2021-05-18] MEDS ORDERED: ceFAZolin/STERILE WATER 2 GM/20 ML SYRINGE IV ONE (12:30)
[2021-05-18] MEDS ORDERED: WATER FOR IRRIG STERILE 1,500 ML BOTTLE IR ONE (12:35)
[2021-05-18] MEDS ORDERED: SODIUM CHLORIDE 0.9% IRR 1,500 ML BOTTLE IR ONE (12:35)
[2021-05-18] MEDS ORDERED: METHYLERGONOVINE MALEATE 0.2 MG/ML VIAL IM ONE (12:44)
[2021-05-18] MEDS ORDERED: MORPHINE 4 MG/1 ML INJ IV PRN (13:15)
[2021-05-18] MEDS ORDERED: KETOROLAC 30 MG/1 ML INJ IV PRN (13:15)
[2021-05-18] MEDS ORDERED: NALOXONE 0.4 MG/1 ML INJ IV PRN (13:15)
[2021-05-18] MEDS ORDERED: LANOLIN/ZINC/DIMETHICONE (LANSINOH) 7 GM TP PRN (13:15)
[2021-05-18] MEDS ORDERED: ONDANSETRON 4 MG/2 ML INJ IV PRN (13:15)
[2021-05-18] MEDS ORDERED: WITCH HAZEL/ GLYCERIN PAD TP PRN (13:15)
[2021-05-18] MEDS ORDERED: oxyCODONE /ACETAMINOPHEN 5-325MG TAB PO PRN (13:15)
[2021-05-18] MEDS ORDERED: IBUPROFEN 600 MG TAB PO PRN (13:15)
[2021-05-18] MEDS ORDERED: MORPHINE 2 MG/1 ML INJ IV PRN (13:15)
[2021-05-18] MEDS ORDERED: PROMETHAZINE 25 MG RECT SUPP PR PRN (13:15)
[2021-05-18] MEDS ORDERED: CLINDAMYCIN 600 MG/50 mL 600 MG/50 ML BAG IV ONE (13:26)
--- NOTE | 2021-05-18 14:03 | Progress Note ---
Assessment and Plan A: IUP@ 39.6 wks GBS neg p: Continue monitoring Anticipate Subjective - Subjective Date of service: 05/18/21 (LATE ENTRY FOR 8:20) Principal diagnosis: IUP@ 39.6/7 wks Patient reports: movement normal, contractions Objective - Vital Signs Vital Signs: Vital Signs - 12hr 05/18/21 05/18/21 05/18/21 02:01 02:06 02:08 Temperature Pulse Rate 66 67 68 Respiratory Rate Blood Pressure 103/51 Blood Pressure [Right] O2 Sat by Pulse 99 99 Oximetry O2 Sat by Pulse Oximetry [ Bilateral] 05/18/21 05/18/21 05/18/21 02:11 02:16 02:21 Temperature Pulse Rate 67 62 61 Respiratory Rate Blood Pressure Blood Pressure [Right] O2 Sat by Pulse 99 99 98 Oximetry O2 Sat by Pulse Oximetry [ Bilateral] 05/18/21 05/18/21 05/18/21 02:23 02:26 02:31 Temperature Pulse Rate 64 62 67 Respiratory Rate Blood Pressure 102/53 Blood Pressure [Right] O2 Sat by Pulse 99 99 Oximetry O2 Sat by Pulse Oximetry [ Bilateral] 05/18/21 05/18/21 05/18/21 02:36 02:39 02:40 Temperature Pulse Rate 68 44 L 81 Respiratory Rate Blood Pressure 124/58 Blood Pressure [Right] O2 Sat by Pulse 99 80 L Oximetry O2 Sat by Pulse Oximetry [ Bilateral] 05/18/21 05/18/21 05/18/21 02:41 02:46 02:51 Temperature Pulse Rate 96 H 69 70 Respiratory Rate Blood Pressure Blood Pressure [Right] O2 Sat by Pulse 91 99 99 Oximetry O2 Sat by Pulse Oximetry [ Bilateral] 05/18/21 05/18/21 05/18/21 02:53 03:07 03:08 Temperature Pulse Rate 70 73 70 Respiratory Rate Blood Pressure 114/68 122/69 Blood Pressure [Right] O2 Sat by Pulse 98 Oximetry O2 Sat by Pulse Oximetry [ Bilateral] 05/18/21 05/18/21 05/18/21 03:12 03:17 03:22 Temperature Pulse Rate 70 70 67 Respiratory Rate Blood Pressure Blood Pressure [Right] O2 Sat by Pulse 99 99 99 Oximetry O2 Sat by Pulse Oximetry [ Bilateral] 05/18/21 05/18/21 05/18/21 03:23 03:27 03:32 Temperature Pulse Rate 69 70 69 Respiratory Rate Blood Pressure 119/66 Blood Pressure [Right] O2 Sat by Pulse 98 98 Oximetry O2 Sat by Pulse Oximetry [ Bilateral] 05/18/21 05/18/21 05/18/21 03:37 03:38 03:45 Temperature Pulse Rate 69 69 Respiratory Rate Blood Pressure 109/55 Blood Pressure [Right] O2 Sat by Pulse 98 87 Oximetry O2 Sat by Pulse Oximetry [ Bilateral] 05/18/21 05/18/21 05/18/21 03:46 03:51 03:53 Temperature Pulse Rate 70 70 68 Respiratory Rate Blood Pressure 106/55 Blood Pressure [Right] O2 Sat by Pulse 98 98 Oximetry O2 Sat by Pulse Oximetry [ Bilateral] 05/18/21 05/18/21 05/18/21 03:56 04:01 04:06 Temperature Pulse Rate 78 79 72 Respiratory Rate Blood Pressure Blood Pressure [Right] O2 Sat by Pulse 99 98 98 Oximetry O2 Sat by Pulse Oximetry [ Bilateral] 05/18/21 05/18/21 05/18/21 04:07 04:11 04:16 Temperature 97.4 F L Pulse Rate 67 69 66 Respiratory 17 Rate Blood Pressure 109/59 Blood Pressure [Right] O2 Sat by Pulse 98 98 Oximetry O2 Sat by Pulse Oximetry [ Bilateral] 05/18/21 05/18/21 05/18/21 04:21 04:26 04:28 Temperature Pulse Rate 71 71 75 Respiratory Rate Blood Pressure Blood Pressure [Right] O2 Sat by Pulse 99 98 91 Oximetry O2 Sat by Pulse Oximetry [ Bilateral] 05/18/21 05/18/21 05/18/21 04:31 04:36 04:38 Temperature Pulse Rate 71 75 72 Respiratory Rate Blood Pressure 112/65 Blood Pressure [Right] O2 Sat by Pulse 99 99 Oximetry O2 Sat by Pulse Oximetry [ Bilateral] 05/18/21 05/18/21 05/18/21 04:41 04:46 04:51 Temperature Pulse Rate 69 72 71 Respiratory Rate Blood Pressure Blood Pressure [Right] O2 Sat by Pulse 98 99 98 Oximetry O2 Sat by Pulse Oximetry [ Bilateral] 05/18/21 05/18/21 05/18/21 04:56 05:01 05:06 Temperature Pulse Rate 72 71 75 Respiratory Rate Blood Pressure Blood Pressure [Right] O2 Sat by Pulse 99 98 98 Oximetry O2 Sat by Pulse Oximetry [ Bilateral] 05/18/21 05/18/21 05/18/21 05:09 05:11 05:16 Temperature Pulse Rate 71 76 77 Respiratory Rate Blood Pressure 120/72 Blood Pressure [Right] O2 Sat by Pulse 98 98 Oximetry O2 Sat by Pulse Oximetry [ Bilateral] 05/18/21 05/18/21 05/18/21 05:21 05:26 05:31 Temperature Pulse Rate 72 74 77 Respiratory Rate Blood Pressure Blood Pressure [Right] O2 Sat by Pulse 98 99 99 Oximetry O2 Sat by Pulse Oximetry [ Bilateral] 05/18/21 05/18/21 05/18/21 05:36 05:37 05:38 Temperature Pulse Rate 72 71 65 Respiratory Rate Blood Pressure 108/53 Blood Pressure [Right] O2 Sat by Pulse 99 92 Oximetry O2 Sat by Pulse Oximetry [ Bilateral] 05/18/21 05/18/21 05/18/21 05:41 05:46 05:51 Temperature Pulse Rate 69 63 66 Respiratory Rate Blood Pressure Blood Pressure [Right] O2 Sat by Pulse 97 98 98 Oximetry O2 Sat by Pulse Oximetry [ Bilateral] 05/18/21 05/18/21 05/18/21 05:56 06:01 06:06 Temperature Pulse Rate 64 67 66 Respiratory Rate Blood Pressure Blood Pressure [Right] O2 Sat by Pulse 97 98 97 Oximetry O2 Sat by Pulse Oximetry [ Bilateral] 05/18/21 05/18/21 05/18/21 06:08 06:11 06:16 Temperature Pulse Rate 65 69 64 Respiratory Rate Blood Pressure 94/50 Blood Pressure [Right] O2 Sat by Pulse 97 96 Oximetry O2 Sat by Pulse Oximetry [ Bilateral] 05/18/21 05/18/21 05/18/21 06:21 06:26 06:31 Temperature Pulse Rate 71 63 66 Respiratory Rate Blood Pressure Blood Pressure [Right] O2 Sat by Pulse 98 98 99 Oximetry O2 Sat by Pulse Oximetry [ Bilateral] 05/18/21 05/18/21 05/18/21 06:36 06:38 06:41 Temperature Pulse Rate 69 64 67 Respiratory Rate Blood Pressure 94/52 Blood Pressure [Right] O2 Sat by Pulse 99 99 Oximetry O2 Sat by Pulse Oximetry [ Bilateral] 05/18/21 05/18/21 05/18/21 06:46 06:51 06:56 Temperature Pulse Rate 65 68 68 Respiratory Rate Blood Pressure Blood Pressure [Right] O2 Sat by Pulse 99 99 99 Oximetry O2 Sat by Pulse Oximetry [ Bilateral] 05/18/21 05/18/21 05/18/21 06:59 07:00 07:01 Temperature 97.3 F L Pulse Rate 64 69 66 Respiratory 16 Rate Blood Pressure 107/54 Blood Pressure 107/54 [Right] O2 Sat by Pulse 99 98 Oximetry O2 Sat by Pulse 98 Oximetry [ Bilateral] 05/18/21 05/18/21 05/18/21 07:06 07:11 07:13 Temperature Pulse Rate 69 70 65 Respiratory Rate Blood Pressure 119/63 Blood Pressure [Right] O2 Sat by Pulse 98 99 Oximetry O2 Sat by Pulse Oximetry [ Bilateral] 05/18/21 05/18/21 05/18/21 07:16 07:21 07:23 Temperature Pulse Rate 69 89 Respiratory Rate Blood Pressure Blood Pressure [Right] O2 Sat by Pulse 100 99 87 Oximetry O2 Sat by Pulse Oximetry [ Bilateral] 05/18/21 05/18/21 05/18/21 07:26 07:28 07:31 Temperature Pulse Rate 75 75 64 Respiratory Rate Blood Pressure 97/54 Blood Pressure [Right] O2 Sat by Pulse 99 100 Oximetry O2 Sat by Pulse Oximetry [ Bilateral] 05/18/21 05/18/21 05/18/21 07:43 07:54 07:58 Temperature Pulse Rate 74 78 89 Respiratory Rate Blood Pressure 110/66 114/70 Blood Pressure [Right] O2 Sat by Pulse 100 Oximetry O2 Sat by Pulse Oximetry [ Bilateral] 05/18/21 05/18/21 05/18/21 07:59 08:04 08:09 Temperature Pulse Rate 84 89 83 Respiratory Rate Blood Pressure Blood Pressure [Right] O2 Sat by Pulse 100 100 100 Oximetry O2 Sat by Pulse Oximetry [ Bilateral] 05/18/21 05/18/21 05/18/21 08:13 08:14 08:15 Temperature Pulse Rate 75 72 75 Respiratory Rate Blood Pressure 116/66 Blood Pressure [Right] O2 Sat by Pulse 99 82 L Oximetry O2 Sat by Pulse Oximetry [ Bilateral] 05/18/21 05/18/21 05/18/21 08:19 08:24 08:28 Temperature Pulse Rate 99 H 82 82 Respiratory Rate Blood Pressure 110/59 Blood Pressure [Right] O2 Sat by Pulse 98 100 Oximetry O2 Sat by Pulse Oximetry [ Bilateral] 05/18/21 05/18/21 05/18/21 08:29 08:31 08:34 Temperature Pulse Rate 82 104 H 91 H Respiratory Rate Blood Pressure Blood Pressure [Right] O2 Sat by Pulse 100 86 100 Oximetry O2 Sat by Pulse Oximetry [ Bilateral] 05/18/21 05/18/21 05/18/21 08:40 08:43 08:50 Temperature Pulse Rate 82 88 31 L Respiratory Rate Blood Pressure 111/57 Blood Pressure [Right] O2 Sat by Pulse 91 84 Oximetry O2 Sat by Pulse Oximetry [ Bilateral] 05/18/21 05/18/21 05/18/21 08:51 08:56 08:58 Temperature Pulse Rate 77 81 78 Respiratory Rate Blood Pressure 129/59 Blood Pressure [Right] O2 Sat by Pulse 100 99 Oximetry O2 Sat by Pulse Oximetry [ Bilateral] 05/18/21 05/18/21 05/18/21 09:01 09:06 09:11 Temperature Pulse Rate 79 81 85 Respiratory Rate Blood Pressure Blood Pressure [Right] O2 Sat by Pulse 100 99 100 Oximetry O2 Sat by Pulse Oximetry [ Bilateral] 05/18/21 05/18/21 05/18/21 09:14 09:16 09:20 Temperature Pulse Rate 78 78 82 Respiratory Rate Blood Pressure 120/63 Blood Pressure [Right] O2 Sat by Pulse 99 92 Oximetry O2 Sat by Pulse Oximetry [ Bilateral] 05/18/21 05/18/21 05/18/21 09:22 09:27 09:28 Temperature 98.9 F Pulse Rate 85 83 85 Respiratory Rate Blood Pressure 115/63 Blood Pressure [Right] O2 Sat by Pulse 99 99 Oximetry O2 Sat by Pulse Oximetry [ Bilateral] 05/18/21 05/18/21 05/18/21 09:32 09:37 09:42 Temperature Pulse Rate 87 83 89 Respiratory Rate Blood Pressure Blood Pressure [Right] O2 Sat by Pulse 99 99 99 Oximetry O2 Sat by Pulse Oximetry [ Bilateral] 05/18/21 05/18/21 05/18/21 09:43 09:47 09:50 Temperature Pulse Rate 87 90 111 H Respiratory Rate Blood Pressure 123/66 Blood Pressure [Right] O2 Sat by Pulse 99 94 Oximetry O2 Sat by Pulse Oximetry [ Bilateral] 05/18/21 05/18/21 05/18/21 09:52 09:57 09:58 Temperature Pulse Rate 94 H 89 86 Respiratory Rate Blood Pressure 120/67 Blood Pressure [Right] O2 Sat by Pulse 98 98 Oximetry O2 Sat by Pulse Oximetry [ Bilateral] 05/18/21 05/18/21 05/18/21 10:03 10:06 10:08 Temperature Pulse Rate 79 70 72 Respiratory Rate Blood Pressure Blood Pressure [Right] O2 Sat by Pulse 99 93 88 Oximetry O2 Sat by Pulse Oximetry [ Bilateral] 05/18/21 05/18/21 05/18/21 10:14 10:17 10:27 Temperature Pulse Rate 77 Respiratory Rate Blood Pressure 104/50 Blood Pressure [Right] O2 Sat by Pulse 87 96 Oximetry O2 Sat by Pulse Oximetry [ Bilateral] 05/18/21 05/18/21 05/18/21 10:28 10:32 10:37 Temperature Pulse Rate 78 94 H 82 Respiratory Rate Blood Pressure 107/56 Blood Pressure [Right] O2 Sat by Pulse 98 99 Oximetry O2 Sat by Pulse Oximetry [ Bilateral] 05/18/21 05/18/21 05/18/21 10:41 10:42 10:43 Temperature Pulse Rate 67 86 82 Respiratory Rate Blood Pressure 128/68 Blood Pressure [Right] O2 Sat by Pulse 87 98 Oximetry O2 Sat by Pulse Oximetry [ Bilateral] 05/18/21 05/18/21 05/18/21 10:47 10:52 10:57 Temperature Pulse Rate 83 82 86 Respiratory Rate Blood Pressure Blood Pressure [Right] O2 Sat by Pulse 99 99 98 Oximetry O2 Sat by Pulse Oximetry [ Bilateral] 05/18/21 05/18/21 05/18/21 11:02 11:07 11:12 Temperature Pulse Rate 84 92 H 81 Respiratory Rate Blood Pressure Blood Pressure [Right] O2 Sat by Pulse 99 99 99 Oximetry O2 Sat by Pulse Oximetry [ Bilateral] 05/18/21 05/18/21 05/18/21 11:13 11:17 11:22 Temperature Pulse Rate 81 83 97 H Respiratory Rate Blood Pressure 114/71 Blood Pressure [Right] O2 Sat by Pulse 100 100 Oximetry O2 Sat by Pulse Oximetry [ Bilateral] 05/18/21 05/18/21 05/18/21 11:27 11:29 11:32 Temperature Pulse Rate 93 H 90 102 H Respiratory Rate Blood Pressure 125/69 Blood Pressure [Right] O2 Sat by Pulse 100 100 Oximetry O2 Sat by Pulse Oximetry [ Bilateral] 05/18/21 05/18/21 05/18/21 11:37 11:42 11:43 Temperature Pulse Rate 82 79 77 Respiratory Rate Blood Pressure 99/54 Blood Pressure [Right] O2 Sat by Pulse 100 100 Oximetry O2 Sat by Pulse Oximetry [ Bilateral] 05/18/21 05/18/21 05/18/21 11:47 11:52 11:57 Temperature Pulse Rate 77 80 79 Respiratory Rate Blood Pressure Blood Pressure [Right] O2 Sat by Pulse 100 100 100 Oximetry O2 Sat by Pulse Oximetry [ Bilateral] 05/18/21 05/18/21 05/18/21 11:58 12:02 12:07 Temperature Pulse Rate 77 79 87 Respiratory Rate Blood Pressure 100/54 Blood Pressure [Right] O2 Sat by Pulse 100 100 Oximetry O2 Sat by Pulse Oximetry [ Bilateral] 05/18/21 05/18/21 05/18/21 13:23 13:25 13:30 Temperature 101 F H 100.4 F H Pulse Rate 79 77 75 Respiratory 10 L 23 21 Rate Blood Pressure 112/52 110/50 113/45 Blood Pressure [Right] O2 Sat by Pulse 99 97 97 Oximetry O2 Sat by Pulse Oximetry [ Bilateral] 05/18/21 13:45 Temperature Pulse Rate 74 Respiratory 19 Rate Blood Pressure 110/55 Blood Pressure [Right] O2 Sat by Pulse 97 Oximetry O2 Sat by Pulse Oximetry [ Bilateral] - Exam Breasts: normal Abdomen: Present: normal appearance, soft, normal bowel sounds Vulva: both: normal FHR: auscultation normal, category 1 Uterine Contraction Monitor Mode: Internal Cervical Dilatation: 6 Cervical Effacement Percentage: 90 station: 0 Uterine Contraction Pattern: Regular Uterine Tone Measurement Phase: Resting Uterine Contraction Intensity: Strong/Firm Extremities: normal - Labs Labs: Abnormal Labs 05/17/21 05/17/21 05/17/21 09:00 09:00 15:50 MCHC 35 H Creatinine 0.3 L Lactate Dehydrogenase 306 H Urine WBC (Auto) 11.0 H U Epithel Cells (Auto) 15.0 H Laboratory Results - last 24 hr 05/17/21 15:50 Urine Color Yellow Urine Turbidity Clear Urine pH 5.0 Ur Specific [place] 1.005 Urine Protein <15 mg/dl Urine Glucose (UA) Negative Urine Ketones Negative Urine Blood 3+ Urine Nitrite Negative Ur Reducing Substances Not Reportable Urine Bilirubin Negative Urine Ictotest Not Reportable Urine Urobilinogen 0.0 Ur Leukocyte Esterase 1+ Urine WBC (Auto) 11.0 H Urine RBC (Auto) > 182.0 U Epithel Cells (Auto) 15.0 H Urine Mucus 3+
[2021-05-18] MEDS: KETOROLAC 30 MG/1 ML INJ IV PRN (22:22)
[2021-05-19 01:59] LABS: Hematocrit 33.6 % (30.3-42.9); Hemoglobin 10.9 gm/dl (10.1-14.3)
[2021-05-19] MEDS: KETOROLAC 30 MG/1 ML INJ IV PRN (05:43)
--- NOTE | 2021-05-19 09:25 | Progress Note ---
Assessment and Plan A: /postop day 1 S/P primary LTCS. Anemia. Heart murmur (new), irregular heartbeat. P: Iron supplementation. EKG. Cardiology consult. Continue routine /postop care. Subjective - Subjective Date of service: 05/19/21 Principal diagnosis: /postop day 1 S/P primary LTCS Patient reports: appetite normal, voiding normally, pain well controlled, flatus, ambulating normally, no dizzy ambulation, no nauseated [place]: doing well (under bili lights) Objective - Vital Signs Latest vital signs: Vital Signs Temp Pulse Resp BP BP Pulse Ox Pulse Ox 05/19/21 08:40 98 05/19/21 07:28 98.0 F 63 18 110/61 97 05/19/21 06:13 18 05/19/21 05:43 18 05/19/21 01:22 18 05/19/21 00:52 18 05/19/21 00:34 98.0 F 61 20 112/63 97 05/18/21 22:52 18 05/18/21 22:22 18 05/18/21 20:42 98.2 F 61 20 123/66 96 05/18/21 20:27 99 05/18/21 16:23 98.6 F 65 18 125/57 97 05/18/21 14:45 100.5 F H 73 24 121/62 94 94 05/18/21 14:23 100.4 F H 05/18/21 14:15 73 17 125/59 98 05/18/21 14:00 72 22 119/58 98 05/18/21 13:45 74 19 110/55 97 05/18/21 13:30 75 21 113/45 97 05/18/21 13:25 100.4 F H 77 23 110/50 97 05/18/21 13:23 101 F H 79 10 L 112/52 99 05/18/21 12:07 87 100 05/18/21 12:02 79 100 05/18/21 11:58 77 100/54 05/18/21 11:57 79 100 05/18/21 11:52 80 100 05/18/21 11:47 77 100 05/18/21 11:43 77 99/54 05/18/21 11:42 79 100 05/18/21 11:37 82 100 05/18/21 11:32 102 H 100 05/18/21 11:29 90 125/69 05/18/21 11:27 93 H 100 05/18/21 11:22 97 H 100 05/18/21 11:17 83 100 05/18/21 11:13 81 114/71 05/18/21 11:12 81 99 05/18/21 11:07 92 H 99 05/18/21 11:02 84 99 05/18/21 10:57 86 98 05/18/21 10:52 82 99 05/18/21 10:47 83 99 05/18/21 10:43 82 128/68 05/18/21 10:42 86 98 05/18/21 10:41 67 87 05/18/21 10:37 82 99 05/18/21 10:32 94 H 98 05/18/21 10:28 78 107/56 05/18/21 10:27 96 05/18/21 10:17 87 05/18/21 10:14 77 104/50 05/18/21 10:08 72 88 05/18/21 10:06 70 93 05/18/21 10:03 79 99 05/18/21 09:58 86 120/67 05/18/21 09:57 89 98 05/18/21 09:52 94 H 98 05/18/21 09:50 111 H 94 05/18/21 09:47 90 99 05/18/21 09:43 87 123/66 05/18/21 09:42 89 99 05/18/21 09:37 83 99 05/18/21 09:32 87 99 05/18/21 09:28 98.9 F 85 115/63 05/18/21 09:27 83 99 Intake and Output 05/18/21 05/19/21 05/19/21 23:59 07:59 15:59 Intake Total 240 240 Output Total 800 1200 Balance -560 -960 Intake: Oral 240 240 Output: Urine 800 1200 Indwelling Catheter 800 600 Void 600 Other: Total, Intake Amount 240 240 Total, Output Amount 800 600 - Exam Cardiovascular: Present: Other (Irregular, heart murmur heard) Abdomen: Present: normal appearance, soft, normal bowel sounds. Absent: distention, tenderness, guarding, rigidity Uterus: Present: firm, fundal height below umbilicus (fundus firm and midline at 2 FB below umbilicus). Absent: bogginess, tenderness Extremities: Absent: tenderness Incision: Present: dry, dressed
[2021-05-19] MEDS: HYDROcodone/ACETAMINOPHEN 5-325 MG TAB PO PRN ×2 (09:50→20:27)
[2021-05-19] MEDS: FERROUS SULFATE 325 MG TAB PO SCH (09:50)
--- NOTE | 2021-05-19 10:10 | Post Anesthesia Evaluation ---
- Post Anesthesia Evaluation Patient Participated: Yes Airway Patent: Yes Stable Respiratory Function: Yes Nausea/Vomiting: No Temp > 96.8F: Yes Pain Manageable: Yes Adequeate Hydration: Yes Anesthesia Complications: No Block Receding Appropriately: Yes
[2021-05-19] MEDS: IBUPROFEN 800 MG TAB PO PRN (23:29)
--- NOTE | 2021-05-20 05:45 | Progress Note ---
Assessment and Plan POD#2 C/Section 1. routine post op care 2. May discharge home tomorrow with baby under phototherapy now Subjective Date of service: 05/20/21 Principal diagnosis: POD#2 repeat C/S Interval history: Pt lying in bed without complaints. Pt denies chest pain or palpitation. Pt is not breast feeding and baby in room under phototherapy. Pt has tolerated a regular diet and passing gas. Lochia small. Objective - Constitutional Vitals: Vital Signs - 12hr 05/19/21 05/20/21 20:27 00:02 Temperature 97.9 F Pulse Rate 68 Respiratory 18 Rate Blood Pressure 109/61 O2 Sat by Pulse 98 Oximetry O2 Sat by Pulse 99 Oximetry [ Bilateral] General appearance: Present: no acute distress - Neck Neck: normal ROM - Respiratory Respiratory effort: normal - Breasts Breasts: deferred - Cardiovascular Rhythm: other (Pulse rate normal on vitals) Extremities: No edema - Gastrointestinal General gastrointestinal: Present: soft, non-tender (obese), other (Incision has approximated with overlap to right side, steristrips in place without drainage or erythema) - Genitourinary Female genitourinary: other (Lochia small; Fundus firm 1cm below the umbilicus and non-tender) - Neurologic Neurologic: moves all extremities - Psychiatric Psychiatric: cooperative - Labs CBC & Chem 7: 05/19/21 01:31 05/17/21 09:00 Medications & Allergies - Medications Allergies/Adverse Reactions: Allergies No Known Allergies Allergy (Verified 05/15/21 13:24) Home Medications: Home Medications Medication Instructions Recorded Confirmed Last Taken Type oxyCODONE /ACETAMINOPHEN [Percocet 1 tab PO Q6HR PRN #20 tablet 05/18/21 Unknown Rx 5/325] Active Medications: Generic Name Dose Route Start Last Admin Trade Name Freq PRN Reason Stop Dose Admin Acetaminophen 650 mg 05/17/21 10:00 Acetaminophen 325 Mg Tab PO Q4H PRN Pain, Mild (1-3) Hydrocodone Bitart/Acetaminophen 1 each 05/18/21 13:15 05/19/21 20:27 Hydrocodone/Acetaminophen 5-325 Mg Tab PO 1 each Q6H PRN Administration Pain, Moderate (4-6) Carboprost Tromethamine 250 mcg 05/17/21 10:00 Carboprost Tromethamine 250 Mcg/1 Ml Inj IM ONCE PRN Uterine Bleeding Ephedrine Sulfate 10 mg 05/17/21 13:00 05/18/21 01:41 Ephedrine Sulfate 50 Mg/1 Ml Inj IV 10 mg Q2M PRN Administration Hypotension Fentanyl 100 mcg 05/17/21 10:00 Fentanyl 100 Mcg/2 Ml Inj IV Q2H PRN Pain,Severe (7-10) LABOR PAIN Ferrous Sulfate 325 mg 05/19/21 10:00 05/19/21 09:50 Ferrous Sulfate 325 Mg Tab PO 325 mg QDAY SANDEEP Administration Oxytocin/Sodium Chloride 30 units in 500 mls @ 4 mls/hr 05/17/21 10:00 05/18/21 10:47 Pitocin/Ns 30 Unit/500ml IV 0 ml/hr TITR SANDEEP 0 mls/hr Titration Protocol Lactated Ringer's 1,000 mls @ 125 mls/hr 05/17/21 10:00 05/17/21 20:17 Lactated Ringers IV 125 mls/hr DIRECT SANDEEP Administration Oxytocin/Sodium Chloride 30 units in 500 mls @ 40 mls/hr 05/17/21 10:00 Pitocin/Ns 30 Unit/500ml IV TITR SANDEEP Protocol Fentanyl/Bupivacaine/Sodium Chlor 200 mcg in 100 mls @ 12 mls/hr 05/17/21 13:00 05/18/21 05:29 Fentanyl-Bupiv 2 Mcg/Ml-0.125% EPIDURAL 12 mls/hr TITR SANDEEP Administration Protocol Ibuprofen 600 mg 05/18/21 13:15 Ibuprofen 600 Mg Tab PO Q6H PRN Pain, Mild (1-3) Ibuprofen 800 mg 05/18/21 13:15 05/19/21 23:29 Ibuprofen 800 Mg Tab PO 800 mg Q6H PRN Administration Pain, Moderate (4-6) Ketorolac Tromethamine 15 mg 05/18/21 13:15 Ketorolac 30 Mg/1 Ml Inj IV 05/23/21 13:14 Q6H PRN Pain, Mild (1-3) Ketorolac Tromethamine 30 mg 05/18/21 13:15 05/19/21 05:43 Ketorolac 30 Mg/1 Ml Inj IV 05/23/21 13:14 30 mg Q6H PRN Administration Pain, Moderate (4-6) Loperamide HCl 2 mg 05/17/21 10:00 Loperamide 2 Mg Cap PO ONCE PRN give with Hemabate Mineral Oil 30 ml 05/17/21 10:00 Mineral Oil 30 Ml Oral Liqd PO QHS PRN Constipation Misoprostol 800 mcg 05/17/21 10:00 Misoprostol 200 Mcg Tab OH ONCE PRN Uterine Bleeding Morphine Sulfate 2 mg 05/18/21 13:15 05/19/21 00:52 Morphine 2 Mg/1 Ml Inj IV 2 mg Q4H PRN Administration Pain, Moderate (4-6) Morphine Sulfate 4 mg 05/18/21 13:15 Morphine 4 Mg/1 Ml Inj IV Q4H PRN Pain , Severe (7-10) Multi-Ingredient Ointment 1 applic 05/18/21 13:15 Lanolin/Zinc/Dimethicone (Lansinoh) 7 Gm TP PRN PRN dryness/cracking Nalbuphine HCl 10 mg 05/17/21 23:57 Nalbuphine 10 Mg/1 Ml Inj IV Q2H PRN Pain, Moderate (4-6) Naloxone HCl 0.2 mg 05/17/21 13:00 Naloxone 2 Mg/2 Ml Inj IV Q5M PRN Respiratory sedation Naloxone HCl 0.1 mg 05/18/21 13:15 Naloxone 0.4 Mg/1 Ml Inj IV Q2MIN PRN Res Rate </= 8 or 02 SAT < 92% Ondansetron HCl 4 mg 05/17/21 10:00 Ondansetron 4 Mg/2 Ml Inj IV Q8H PRN Nausea And Vomiting Ondansetron HCl 4 mg 05/18/21 13:15 Ondansetron 4 Mg/2 Ml Inj IV Q8H PRN Nausea And Vomiting Oxycodone/Acetaminophen 1 tab 05/18/21 13:15 Oxycodone /Acetaminophen 5-325mg Tab PO Q6H PRN Pain, Moderate (4-6) Oxytocin 10 unit 05/17/21 10:00 Oxytocin 10 Unit/1 Ml Inj IM ONCE PRN Uterine Bleeding Promethazine HCl 25 mg 05/18/21 13:15 Promethazine 25 Mg Rect Supp OH Q6H PRN N/V IF NPO AND NO IV ACCESS Sodium Chloride 10 ml 05/18/21 14:00 Sodium Chloride 0.9% 10 Ml Flush Syringe IV 05/28/21 23:59 PRN NR Terbutaline Sulfate 0.25 mg 05/17/21 10:00 Terbutaline 1 Mg/1 Ml Inj SUB-Q ONCE PRN Hyperstimulation/Hypertonicity Witch Aria/Glycerin 1 each 05/18/21 13:15 Witch Aria/ Glycerin Pad TP PRN PRN Hemorrhoids/cleansing/soothing
--- NOTE | 2021-05-20 10:04 | Electrocardiograph Report ---
[facility] Test Date: 2021-05-19 Test Time: 10:56:33 Pat Name: LORRI SMALLS Department: Room: 2131 1 Gender: F [employer] Director: ESTEFANÍA : 1980 Requested By: ISAAC EDMONDS Order Number: [id number] Reading MD: Jluis Mckinney Measurements Intervals [place] Rate: 68 P: 42 AR: 138 QRS: 11 QRSD: 88 T: 23 QT: 388 QTc: 412 Interpretive Statements Sinus rhythm Ventricular premature complex No previous ECG available for comparison Electronically Signed On 05-20-2021 10:03:43 EST by Jluis Mckinney
[2021-05-20] MEDS: FERROUS SULFATE 325 MG TAB PO SCH (10:37)
[2021-05-20] MEDS: IBUPROFEN 800 MG TAB PO PRN ×2 (10:39→18:35)
[2021-05-21] MEDS: IBUPROFEN 800 MG TAB PO PRN ×3 (01:24→14:40)
--- NOTE | 2021-05-21 09:07 | Progress Note ---
Assessment and Plan A: /postop day 3 S/P primary low transverse section. Anemia. Irregular heartbeat, heart murmur. P: Continue iron supplementation. Awaiting assistant operator to see patient (patient wants to see assistant operator while inpatient). Continue routine /postop care. Subjective - Subjective Date of service: 05/21/21 Principal diagnosis: POD#3 S/P primary LTCS Interval history: EKG shows PVCs. Patient reports: appetite normal, voiding normally, pain well controlled, flatus, ambulating normally, no dizzy ambulation, no nauseated : doing well (baby still receiving photo therapy) Objective - Vital Signs Latest vital signs: Vital Signs Temp Pulse Resp BP BP Pulse Ox Pulse Ox 05/21/21 00:40 97.6 F 64 16 105/55 99 05/20/21 21:30 99 05/20/21 16:29 98.4 F 85 20 106/64 99 Intake and Output 05/20/21 05/21/21 05/21/21 22:59 07:59 15:59 Intake Total Balance Intake: Oral Intake, Free Water Other: Total, Intake Amount # Voids Void - Exam Cardiovascular: Present: Other (Irregular heart beat, murmur heard) Abdomen: Present: normal appearance, soft, normal bowel sounds. Absent: distention, tenderness, guarding, rigidity Uterus: Present: normal, firm, fundal height below umbilicus (fundus firm and midline at 2 FB below umbilicus). Absent: bogginess, tenderness Extremities: Present: edema (pedal edema bilaterally). Absent: tenderness Incision: Present: dry, intact
[2021-05-21 09:43] VITALS: BP 100/66
--- NOTE | 2021-05-21 10:20 | Consultation ---
History of Present Illness Consult date: 05/21/21 Consult reason: arrhythmia, other (Heart murmur) History of present illness: She is postop day 3 status post section. She has been doing well without any complaints. However, she was noted to have some PVCs on the monitor and on ECG and she was also reported to have a heart murmur. ECG shows sinus rhythm with occasional PVCs. The patient denies chest pain, dyspnea, palpitations, or dizziness. I could not auscultate a heart murmur on examination today. Past History Past Medical History: other (None) Past Surgical History: Social history: . denies: smoking, alcohol abuse Family history: denies: no significant family history, CAD Medications and Allergies Allergies Allergy/AdvReac Type Severity Reaction Status Date / Time No Known Allergies Allergy Verified 05/15/21 13:24 Home Medications Medication Instructions Recorded Confirmed Last Taken Type oxyCODONE /ACETAMINOPHEN [Percocet 1 tab PO Q6HR PRN #20 tablet 05/18/21 Unknown Rx 5/325] Active Meds: Active Medications Acetaminophen (Acetaminophen 325 Mg Tab) 650 mg PO Q4H PRN PRN Reason: Pain, Mild (1-3) Hydrocodone Bitart/Acetaminophen (Hydrocodone/Acetaminophen 5-325 Mg Tab) 1 each PO Q6H PRN PRN Reason: Pain, Moderate (4-6) Last Admin: 05/19/21 20:27 Dose: 1 each Carboprost Tromethamine (Carboprost Tromethamine 250 Mcg/1 Ml Inj) 250 mcg IM ONCE PRN PRN Reason: Uterine Bleeding Ephedrine Sulfate (Ephedrine Sulfate 50 Mg/1 Ml Inj) 10 mg IV Q2M PRN PRN Reason: Hypotension Last Admin: 05/18/21 01:41 Dose: 10 mg Fentanyl (Fentanyl 100 Mcg/2 Ml Inj) 100 mcg IV Q2H PRN PRN Reason: Pain,Severe (7-10) LABOR PAIN Ferrous Sulfate (Ferrous Sulfate 325 Mg Tab) 325 mg PO QDAY SANDEEP Last Admin: 05/20/21 10:37 Dose: 325 mg Oxytocin/Sodium Chloride (Pitocin/Ns 30 Unit/500ml) 30 units in 500 mls @ 4 mls/hr IV TITR SANDEEP; Protocol Last Titration: 05/18/21 10:47 Dose: 0 ml/hr, 0 mls/hr Lactated Ringer's (Lactated Ringers) 1,000 mls @ 125 mls/hr IV DIRECT SANDEEP Last Admin: 05/17/21 20:17 Dose: 125 mls/hr Oxytocin/Sodium Chloride (Pitocin/Ns 30 Unit/500ml) 30 units in 500 mls @ 40 mls/hr IV TITR SANDEEP; Protocol Fentanyl/Bupivacaine/Sodium Chlor (Fentanyl-Bupiv 2 Mcg/Ml-0.125%) 200 mcg in 100 mls @ 12 mls/hr EPIDURAL TITR SANDEEP; Protocol Last Admin: 05/18/21 05:29 Dose: 12 mls/hr Ibuprofen (Ibuprofen 600 Mg Tab) 600 mg PO Q6H PRN PRN Reason: Pain, Mild (1-3) Ibuprofen (Ibuprofen 800 Mg Tab) 800 mg PO Q6H PRN PRN Reason: Pain, Moderate (4-6) Last Admin: 05/21/21 01:24 Dose: 800 mg Ketorolac Tromethamine (Ketorolac 30 Mg/1 Ml Inj) 15 mg IV Q6H PRN PRN Reason: Pain, Mild (1-3) Stop: 05/23/21 13:14 Ketorolac Tromethamine (Ketorolac 30 Mg/1 Ml Inj) 30 mg IV Q6H PRN PRN Reason: Pain, Moderate (4-6) Stop: 05/23/21 13:14 Last Admin: 05/19/21 05:43 Dose: 30 mg Loperamide HCl (Loperamide 2 Mg Cap) 2 mg PO ONCE PRN PRN Reason: give with Hemabate Mineral Oil (Mineral Oil 30 Ml Oral Liqd) 30 ml PO QHS PRN PRN Reason: Constipation Misoprostol (Misoprostol 200 Mcg Tab) 800 mcg VA ONCE PRN PRN Reason: Uterine Bleeding Morphine Sulfate (Morphine 2 Mg/1 Ml Inj) 2 mg IV Q4H PRN PRN Reason: Pain, Moderate (4-6) Last Admin: 05/19/21 00:52 Dose: 2 mg Morphine Sulfate (Morphine 4 Mg/1 Ml Inj) 4 mg IV Q4H PRN PRN Reason: Pain , Severe (7-10) Multi-Ingredient Ointment (Lanolin/Zinc/Dimethicone (Lansinoh) 7 Gm) 1 applic TP PRN PRN PRN Reason: dryness/cracking Last Admin: 05/20/21 10:38 Dose: 1 applic Nalbuphine HCl (Nalbuphine 10 Mg/1 Ml Inj) 10 mg IV Q2H PRN PRN Reason: Pain, Moderate (4-6) Naloxone HCl (Naloxone 2 Mg/2 Ml Inj) 0.2 mg IV Q5M PRN PRN Reason: Respiratory sedation Naloxone HCl (Naloxone 0.4 Mg/1 Ml Inj) 0.1 mg IV Q2MIN PRN PRN Reason: Res Rate </= 8 or 02 SAT < 92% Ondansetron HCl (Ondansetron 4 Mg/2 Ml Inj) 4 mg IV Q8H PRN PRN Reason: Nausea And Vomiting Ondansetron HCl (Ondansetron 4 Mg/2 Ml Inj) 4 mg IV Q8H PRN PRN Reason: Nausea And Vomiting Oxycodone/Acetaminophen (Oxycodone /Acetaminophen 5-325mg Tab) 1 tab PO Q6H PRN PRN Reason: Pain, Moderate (4-6) Last Admin: 05/20/21 15:05 Dose: 1 tab Oxytocin (Oxytocin 10 Unit/1 Ml Inj) 10 unit IM ONCE PRN PRN Reason: Uterine Bleeding Promethazine HCl (Promethazine 25 Mg Rect Supp) 25 mg VA Q6H PRN PRN Reason: N/V IF NPO AND NO IV ACCESS Sodium Chloride (Sodium Chloride 0.9% 10 Ml Flush Syringe) 10 ml IV PRN NR Stop: 05/28/21 23:59 Terbutaline Sulfate (Terbutaline 1 Mg/1 Ml Inj) 0.25 mg SUB-Q ONCE PRN PRN Reason: Hyperstimulation/Hypertonicity Witch Aria/Glycerin (Witch Aria/ Glycerin Pad) 1 each TP PRN PRN PRN Reason: Hemorrhoids/cleansing/soothing Review of Systems Constitutional: no fever, no chills Ears, nose, mouth and throat: no ear pain, no ear discharge Cardiovascular: no chest pain, no palpitations, no rapid/irregular heart beat, no lightheadedness, no dyspnea on exertion Respiratory: no cough, no hemoptysis, no shortness of breath Gastrointestinal: no abdominal pain, no nausea, no vomiting, no diarrhea, no constipation Genitourinary Female: no dysuria, no urinary frequency Rectal: no pain, no bleeding Musculoskeletal: no neck stiffness, no neck pain, no myalgias Integumentary: no rash, no pruritis Neurological: no weakness, no parathesias, no numbness, no headaches Psychiatric: no sleep disturbances, no change in appetite Endocrine: no cold intolerance, no heat intolerance Hematologic/Lymphatic: no easy bruising, no easy bleeding Allergic/Immunologic: no urticaria, no wheezing Physical Examination Vital Signs Last Vital Signs Temp 98.2 F 05/21/21 09:00 Pulse 84 05/21/21 09:00 Resp 20 05/21/21 09:00 BP 100/66 05/21/21 09:00 Pulse Ox 99 05/21/21 09:00 General appearance: no acute distress, obese HEENT: Positive: EOMI, Normocephaly, Mucus Membranes Moist Neck: Positive: neck supple, trachea midline Cardiac: Positive: Reg Rate and Rhythm, S1/S2 Lungs: Positive: clear to auscultation Neuro: Positive: Grossly Intact Abdomen: Positive: Soft, Active Bowel Sounds. Negative: Tender Musculoskeletal: Normal Range of Motion Extremities: Present: normal. Absent: edema Results 05/19/21 01:31 05/17/21 09:00 - Imaging and Cardiology EKG: image reviewed EKG interpretations - Telemetry EKG Rhythm: Sinus Rhythm (with occasional PVCs) Assessment and Plan Obtain BMP and magnesium level. Please call me with any abnormal labs and it will be supplemented. Otherwise, she may be discharged home from a cardiac standpoint after labs are drawn and corrected. She may call my office for follow-up in about 2 weeks. [facility] . - Patient Problems (1) PVCs (premature ventricular contractions) Current Visit: Yes Status: Acute (2) S/P section Current Visit: Yes Status: Acute (3) Obesity Current Visit: Yes Status: Acute Qualifiers: Obesity type: due to excess calories
[2021-05-21] MEDS: FERROUS SULFATE 325 MG TAB PO SCH (10:26)
[2021-05-21 11:32] LABS: Blood Urea Nitrogen 9 mg/dL (7-17); Calcium 8.2 mg/dL (8.4-10.2); Hemolysis Index 0
[2021-05-21 11:34] LABS: BUN/Creatinine Ratio 23
--- NOTE | 2021-05-21 12:09 | Event Note ---
Date: 05/21/21 Patient has been seen and cleared to go home by cardiology. Rx for magnesium put on patient's chart (low magnesium). Discussed with patient /postop discharge instructions and warning signs. Care of incision and activity restrictions discussed with patient. Advised patient to avoid intercourse, lifting, housework, driving, stair climbing, tub baths (patient may take showers). Advised patient to follow up at [facility] clinic in 1 week. Advised patient to follow up with traffic control flagger in 2 weeks. Patient voiced understanding.
--- NOTE | 2021-05-21 12:17 | Discharge Summary ---
Providers - Providers Date of Admission: 05/17/21 23:57 Date of discharge: 05/21/21 Attending physician: MARILU BOUCHER MD 05/21/21 08:57 Consult to Physician [CONS] Routine Comment: Consulting Provider: MIGUEL ANGEL CORONA Physician Instructions: Reason For Exam: irregular heart beat, heart murmur, Primary care physician: MARILU BOUCHER MD Hospitalization Reason for admission: induction of labor Delivery: Procedure: primary low transverse Incision: dry, intact Other procedures: none Discharge diagnosis: IUP at term delivered baby: female Pertinent studies: Labs Hospital course: Stable hospital course Condition at discharge: Good Disposition: 01 HOME / SELF CARE / HOMELESS - Discharge Diagnoses (1) Term delivered Status: Acute Plan - Discharge Medications Prescriptions: Magnesium Oxide 400 mg PO BID 10 Days #20 oxyCODONE /ACETAMINOPHEN [Percocet 5/325] 1 tab PO Q6HR PRN #20 tablet PRN Reason: Pain - Provider Discharge Summary Activity: routine, no sex for 6 weeks, no heavy lifting 4 weeks, no strenuous exercise Diet: routine Instructions: routine Additional instructions: Keep taking your vitamin and iron supplements at home. Take the magnesium supplements that have been prescribed for you. Follow up at [facility] clinic in 1 week. Follow up with furnace repairer in 2 weeks. Call your doctor immediately for: * Fever > 100.5 * Heavy vaginal bleeding ( >1 pad per hour) * Severe persistent headache * Shortness of breath * Reddened, hot, painful area to leg or breast * Drainage or odor from incision. * Keep incision clean and dry at all times and follow doctor's instructions regarding bathing/showering - Follow up plan Follow up: ISAAC EDMONDS CNM [Advanced Practice Nurse] - 7 Days
== END 2021-05-21 15:58 | disposition home or self-care (01) | DRG 787 ==
LOC: TRG 07:59 → LD 08:00 → TRG 23:57 → LD 23:57 → APU 05-18 13:07 → OB 05-18 14:32
PROVIDERS: ADMIT Obstetrics & Gynecology; ATTEND Obstetrics & Gynecology
PROC: 10H07YZ Insertion of Other Device into Products of Conception, Via Natural or Artificial Opening (ICD-10-PCS; 2021-05-17)
PROC: 0U7C7ZZ Dilation of Cervix, Via Natural or Artificial Opening (ICD-10-PCS; 2021-05-17)
PROC: 10D00Z1 Extraction of Products of Conception, Low, Open Approach (ICD-10-PCS; principal; 2021-05-18)
PROC: 3E0234Z Introduction of Serum, Toxoid and Vaccine into Muscle, Percutaneous Approach (ICD-10-PCS; 2021-05-19)
DX: O42.02 Full-term premature rupture of membranes, onset of labor within 24 hours of rupture (principal); O99.43 Diseases of the circulatory system complicating the puerperium; Z3A.39 39 weeks gestation of pregnancy; Z37.0 Single live birth; O99.214 Obesity complicating childbirth; O76 Abnormality in fetal heart rate and rhythm complicating labor and delivery; O62.1 Secondary uterine inertia; O90.81 Anemia of the puerperium; I49.3 Ventricular premature depolarization
CPT/HCPCS: 36415; 76816; 80048; 80053; 81001; 82565; 83615; 83735; 84450; 84460; 84550; 85014; 85018; 85025; 85027; 85461; 86592; 86850; 86900; 86901; 87086; 88307; 93005; 93970; 99211; G0378; J3490; J7121; J7502; G0463; J0595; J0690; J1100; J1200; J1885; J2270; J2405; J2590; J2765; J2790; J7120; U0003